=== PATIENT | male | born 1965 | race Caucasian/White ===

== ENCOUNTER → 2023-07-15 06:59 | Outpatient (CLI) | payer BC, SELFPAY ==
[2023-07-15 07:46] LABS: Add Manual Diff / Slide Review NO; Basophils Absolute Auto 0 /uL (0-100); Basophils Percent Auto 0.6 % (0-2); Eosinophils Absolute Auto 100 /uL (0-450); Eosinophils Percent Auto 2.9 % (2-4); Hematocrit 40.2 % (41-53); Hemoglobin 14.2 g/dL (13.5-17.5); Lymphocytes Absolute Auto 1300 /uL (1100-4500); Lymphocytes Percent Auto 25.8 % (25-40); Mean Corpuscular HGB Conc 35.2 % (30-36); Mean Corpuscular Hemoglobin 32.8 PG (26-34); Monocytes Absolute Auto 700 /uL (0-900); Monocytes Percent Auto 14.6 % (3-14); Neutrophils Absolute Auto 2700 /uL (1500-7000); Neutrophils Percent Auto 56.1 % (50-75); Platelet Count 250 X10^3/uL (150-400); Red Blood Cell Count 4.33 X10^6/uL (4.5-5.9); Red Cell Distribution Width 12.2 % (11.6-14.8); White Blood Cell Count 4.9 X10^3/uL (4.5-11.0)
[2023-07-15 08:24] LABS: Alanine Aminotransferase 21 IU/L (<50); Albumin 4.1 g/dL (3.5-5.0); Albumin Globulin Ratio 1.2 (1.0-2.8); Alkaline Phosphatase 51 U/L (38-126); Aspartate Aminotransferase 32 IU/L (17-59); BUN Creatinine Ratio 20.2 (6-22); Bilirubin Total 0.9 mg/dL (0.2-1.3); Blood Urea Nitrogen 19 mg/dL (9-20); Calcium 9.4 mg/dL (8.4-10.2); Carbon Dioxide 28 mmol/L (22-32); Chloride 107 mmol/L (98-107); Cholesterol 231 mg/dL (140-199); Estimated Glomerular Filt Rate > 60 mL/min (>60); Globulin 3.4 g/dL (1.7-4.1); Glucose 98 mg/dL (70-100); HDL Cholesterol 52 mg/dL (40-60); HEMOLYSIS < 15 (0-50); LDL Cholesterol Calculated 156 mg/dL (<100); Potassium 4.6 mmol/L (3.4-5.1); Sodium 139 mmol/L (137-145); Total Protein 7.5 g/dL (6.3-8.2); Triglycerides 116 mg/dL (35-150)
[2023-07-15 08:49] LABS: Prostate Specific Antigen 0.338 ng/mL (0.10-4.00)
== END ==
PROVIDERS: PCP Family Medicine; Referring Provider Family Medicine; Visit Provider Family Medicine
DX: Z00.00 Encounter for general adult medical examination without abnormal findings (principal)
CPT/HCPCS: 36415; 80053; 80061; 84153; 85025

== ENCOUNTER 2023-10-04 12:56 | Day surgery (SDC) | payer BC, SELFPAY ==
--- NOTE | 2023-10-04 | PATH_ITS ---
[facility] Accession Number: [id number] No. of containers..01 Tissue . 01 Material submitted: . rectum - RECTAL POLYP . 01 Diagnosis: RECTAL POLYP: Hyperplastic polyp. [facility] 10/10/2023 1109 Local . 01 Electronically signed: . Lebron Mendoza MD, PhD, Pathologist NPI- [id number] . 01 Gross description: . Received in formalin with two patient identifiers and rectal polyp, is a single zelaya soft tissue fragment, 0.3 cm in greatest dimension. Submitted entirely in A1. ([id number]) /MRV 10/05/2023 1405 Local . 01 Pathologist provided ICD-10: K62.1 . 01 CPT . 116743 Specimen Comment: A courtesy copy of this report has been sent to [phone] Performed at: [address] [facility] [id number] MD Louie Rodriguez MD Phone: [phone]
[2023-10-04 13:19] VITALS: BP 116/74; PULSE 60; RESP 18; TEMP 36.4; O2SAT 95
--- NOTE | 2023-10-04 13:46 | PM.HP.1 ---
History of Present Illness History of Present Illness Date Patient Seen: 10/04/23 Time Patient Seen: 13:46 Chief complaint: [facility] [place] Narrative: 57-year-old man here for 1st time screening colonoscopy. No family history of colon cancer. No abdominal concerns. [facility] Medical History (Updated 07/20/23 @ 19:32 by Laury Minaya) Floaters Sleep difficulties Knee pain Dry skin Depression Concentration deficit Tear of PCL (posterior cruciate ligament) of knee (~2021) Tear of MCL (medial collateral ligament) of knee Chronic back pain Chicken pox (~1986) Tinnitus (~1989) Decreased hearing Skin cancer Family history of Parkinson's disease Epistaxis (~2019) Preventative health care Hyperlipidemia Family history of diabetes mellitus Left knee pain Encounter for well adult exam without abnormal findings Surgical History (Updated 07/20/23 @ 19:32 by Laury Minaya) Squamous cell skin cancer [place] teeth removed Family History (Updated 07/20/23 @ 19:35 by Laury Minaya) Father Diabetes mellitus Parkinson's disease Head injury Mother Depression Grandfather Kidney failure Grandmother Leukemia Social History Smoking Status: Never smoker alcohol intake: current Meds Home Medications and Allergies Home Medications Medication Instructions Recorded Confirmed Type atorvastatin 10 mg tablet 10 mg PO BEDTIME #90 tabs 07/19/23 10/04/23 Rx sodium,potassium,mag sulfates 17.5 See Rx Instructions PO .COMPLEX 09/27/23 Rx gram-3.13 gram-1.6 gram oral soln #354 mL (Suprep Bowel Prep Kit) Allergies Allergy/AdvReac Type Severity Reaction Status Date / Time No Known Drug Allergies Allergy Verified 10/04/23 13:01 Exam Vital Signs (past 8 hours): - 10/04/23 13:19 Temperature 97.5 F L Pulse Rate 60 Respiratory Rate 18 Blood Pressure 116/74 Pulse Oximetry 95 Oxygen Delivery Method Room Air Oxygen Delivery Method Room Air Narrative Exam Narrative: General adult man alert oriented no acute distress Chest nonlabored respiration Extremities warm well perfused Assessment & Plan Assessment & Plan narrative: The patient requires colorectal screening and colonoscopy is recommended. Technical details were discussed. Risks, benefits, alternatives explained. Risks including but not limited to myocardial infarction, aspiration, bleeding, pain, missed lesion, incomplete examination, need for further radiographic studies, intestinal injury, and need for major abdominal surgery were discussed. All questions were answered to their satisfaction, and they are in agreement with this plan.
[2023-10-04 14:14] VITALS: BP 83/54; PULSE 69; RESP 10; TEMP 36.1; O2SAT 93
[2023-10-04 14:19] VITALS: BP 86/57; PULSE 64; RESP 14; O2SAT 95
[2023-10-04 14:24] VITALS: BP 87/59; PULSE 64; RESP 16; O2SAT 97
--- NOTE | 2023-10-04 14:25 | P.OP.COLON_ITS ---
Operative Date/Time/Diagnoses Date of procedure: 10/04/23 Time of procedure: 14:25 Pre-op diagnosis: Colorectal screening Post-op diagnosis: other (Colonic polyps x1) Procedure & Clinicians Study performed: Screening colonoscopy Polypectomy Same procedure as scheduled: Yes Indications: Colorectal screening Surgeon: Sonu Gold Procedure Notes Procedure in detail: The history and physical was performed/updated and the patient is ASA class is 2. The procedure was discussed in detail with the patient. Potential risks complications including infection, bleeding, missed diagnosis, perforation, need for surgery, and were explained. Their questions were answered and informed consent was obtained. Patient was brought to the procedure room and placed standard monitoring equipment. The patient's vital signs were monitored continuously throughout the entire procedure. Prior to starting time-out was performed. The patient was placed in the left lateral recumbent position. Procedural sedation was administered by anesthesia. Examination began with a thorough inspection of the perianal area there was no evidence of fissures, fistulae, external hemorrhoids or cutaneous malignancy. The colonoscopy scope was then placed into the anal canal and was advanced to the cecum, which was identified by the ileocecal valve, the appendiceal orifice and the confluence of the taenia. The scope was then slowly withdrawn examining colon thoroughly in all directions, irrigating it of any residual stool. The scope was retroflexed within the rectum The patient tolerated the procedure well. They will be discharged once criteria are met. The prep was of good/excellent quality. The withdrawl time was 7 minutes. FINDINGS * Rectal polyp 3 mm removed with biopsy forceps * Diverticulosis of descending colon- mild Specimen(s): other (Rectal polyp) Impression: Colonic polyp x1 Post-procedure Recommendations: High fiber diet Plan for aftercare: Follow up is dependent on pathology findings likely 5 years. Disposition: same day surgery
[2023-10-04 14:29] VITALS: BP 99/60; PULSE 59; RESP 16; O2SAT 98
== END 2023-10-04 14:45 | disposition home or self-care (01) ==
PROVIDERS: PCP Family Medicine; Referring Provider Surgery; Visit Provider Surgery
PROC: 0DJD8ZZ Inspection of Lower Intestinal Tract, Via Natural or Artificial Opening Endoscopic (ICD-10-PCS; CPT 45378; principal; 2023-10-04 13:45)
DX: Z12.11 Encounter for screening for malignant neoplasm of colon (principal); K57.30 Diverticulosis of large intestine without perforation or abscess without bleeding; K62.1 Rectal polyp
CPT/HCPCS: 45380; J2704

== ENCOUNTER → 2024-06-22 06:53 | Outpatient (CLI) | payer OTHER, SELFPAY ==
[2024-06-22 08:34] LABS: Alanine Aminotransferase 25 IU/L (<50); Albumin 4.2 g/dL (3.5-5.0); Albumin Globulin Ratio 1.5 (1.0-2.8); Alkaline Phosphatase 51 U/L (38-126); Aspartate Aminotransferase 28 IU/L (17-59); BUN Creatinine Ratio 21.6 (6-22); Bilirubin Total 0.5 mg/dL (0.2-1.3); Blood Urea Nitrogen 21 mg/dL (9-20); Calcium 8.7 mg/dL (8.4-10.2); Carbon Dioxide 26 mmol/L (22-32); Chloride 104 mmol/L (98-107); Cholesterol 173 mg/dL (140-199); Estimated Glomerular Filt Rate > 60 mL/min (>60); Globulin 2.8 g/dL (1.7-4.1); Glucose 94 mg/dL (80-110); HDL Cholesterol 53 mg/dL (40-60); HEMOLYSIS < 15 (0-50); LDL Cholesterol Calculated 99 mg/dL (<100); Potassium 4.5 mmol/L (3.4-5.1); Sodium 139 mmol/L (137-145); Triglycerides 103 mg/dL (35-150)
== END ==
LOC: LAB 06:53
PROVIDERS: PCP Family Medicine; Referring Provider Family Medicine; Visit Provider Family Medicine
DX: E78.5 Hyperlipidemia, unspecified (principal)
CPT/HCPCS: 36415; 80053; 80061

== ENCOUNTER 2024-09-26 08:15 | Outpatient (RCR) | payer OTHER, SELFPAY ==
--- NOTE | 2024-08-08 17:10 | PT.OIE ---
Current Diagnoses Other chronic pain (08/08/24) Pain in left knee (08/08/24) Dorsalgia, unspecified (08/08/24) Past Medical History (Last Reviewed 06/28/24 @ 14:14 by Miguel Lou DO) Adult wellness visit Chicken pox (~1986) Chronic back pain Concentration deficit Decreased hearing Depression Dry skin Encounter for well adult exam without abnormal findings Epistaxis (~2019) Family history of diabetes mellitus Family history of Parkinson's disease Floaters Hyperlipidemia Knee pain Left knee pain Neuropraxia of left upper extremity Preventative health care Skin cancer Sleep difficulties Tear of MCL (medial collateral ligament) of knee Tear of PCL (posterior cruciate ligament) of knee (~2021) Tinnitus (~1989) Past Surgical History (Last Reviewed 06/28/24 @ 14:14 by Miguel Lou DO) Squamous cell skin cancer [place] teeth removed Visit Care Team Role Provider Type Miguel Lou DO Attending Provider Physician Family Provider Primary Care Provider Referring Provider Specialty: [facility] Practice Address: [address] [place] [address] Email: [email or web address] Physical Therapy Initial Evaluation PT-OP-A Visit Information Start: 08/07/24 16:23 Freq: Status: Active Protocol: Document 08/08/24 09:03 SAK (Rec: 08/08/24 09:51 SAK Laptop) Out-Patient Physical Therapy Visit Information Visit Information Visit Type Initial Evaluation Visit Start Time 09:03 Visit Stop Time 09:47 Visit Number 1 Evaluation Information Evaluation Date 08/08/24 PT-OP-B Current Condition Start: 08/07/24 16:23 Freq: Status: Active Protocol: Document 08/08/24 09:03 SAK (Rec: 08/08/24 09:51 SAK Laptop) Current Condition History of Current Condition Onset Date 10+ yrs Current Complaints LBP, right hip pain, tightness History of Current Condition chronic LBP, history having PT due to right sciatica with noted compensatory movements s /p left knee surgery, has been walking fast on treadmill per prior PT recommendation and [place] daily. Pain has shifted from sciatica to lateral right hip pain and states right hip gives way some if lands wrong weighting hip at slightly wrong position. Also does squats, lunges, dips, push ups, rows with TRX. Doing rowing machine caused pain between shoulder blades so discontinued. 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 Described some prior PT exercises, (sounds postural [facility] ex) but not currently doing. No prone exercises. Prior Treatments and Tests PT, no imaging Treatment Goals Patient/Caregiver Goals minimize pain and be able to do usual activities without pain PT-OP-C Subjective Start: 08/07/24 16:23 Freq: Status: Active Protocol: Document 08/08/24 09:03 [facility] (Rec: 08/08/24 11:29 [facility] Laptop) Patient Questionnaires Oswestry Low Back Index Oswestry Score 18 OP-PT Pain Assessment Pain Assessment Grid Paper Pain Assessment Grid Completed Yes Location right hip and buttock, LB Intensity 2 Description Aching,Tightness Frequency Frequent Pain Aggravating Factors Activity,Exercise Other Pain Aggravating Factors walking downhill Pain Alleviating Factors Rest PT-OP-G Mobility & Gait Start: 08/07/24 16:23 Freq: Status: Active Protocol: Document 08/08/24 09:03 [facility] (Rec: 08/08/24 11:29 [facility] Laptop) OP Mobility Evaluation Functional Movements Squats cannot squat fully to the ground OP Gait Assessment Gait Gait Assistance Required: Independent Assistive Devices Assistive Device None Comments Gait Comments increased ER left with decreased hip flexion, dec trunk rotation, increased lateral sway sandra Stair Climbing Evaluation Evaluation Level of Assist On Stairs Independent Technique/Endurance Stair Climbing Direction Ascend and Descend Stair Climbing Technique Step Over Step Comments Stair Climbing Comments decreased gluteal activation PT-OP-H Neuro Start: 08/07/24 16:23 Freq: Status: Active Protocol: Document 08/08/24 09:03 [facility] (Rec: 08/08/24 11:29 [facility] Laptop) Sensation Evaluation Gross Sensation Gross Sensation WNL PT-OP-J Posture/Palpation/Skin Start: 08/07/24 16:23 Freq: Status: Active Protocol: Document 08/08/24 09:03 [facility] (Rec: 08/08/24 09:51 [facility] Laptop) Posture Evaluation Position Standing Head/C-Spine Posture Forward Head T-Spine Posture Increased Kyphosis L-Spine Posture Increased Lordosis Shoulder Posture (L) Rounded,(R) Rounded Scapula Posture (L) Protracted,(R) Protracted Pelvis Posture Anteriorly Tilted Hip Posture (L) Externally Rotated,(R) Externally Rotated Ankle/Foot Posture (L) Forefoot Eversion Foot Arch (L) Low Arch,(R) Low Arch Comments Posture Comments Left ASIS sup to right, leg length equal supine. Palpation Assessment Location piriformis Palpation Location left Palpation Findings Soft Tissue Tightness lumbar paraspinals Palpation Findings Soft Tissue Tightness PT-OP-K Range of Motion Start: 08/07/24 16:23 Freq: Status: Active Protocol: Document 08/08/24 09:03 [facility] (Rec: 08/08/24 11:29 [facility] Laptop) Lumbar Spine Range of Motion Lumbar Spine Active Flexion 70 Extension 25 Rotation Left 10 Rotation Right 10 Lateral Flexion Left 35 Lateral Flexion Right 35 ROM Limitations Soft Tissue Tightness Wrist Goniometric Range of Motion ROM Limitations Wrist Limitations of Range of Motion Soft Tissue Tightness Hip Goniometric Range of Motion Hip Left Flexion w/Knee Flexed 110 Straight Leg Raise 85 Extension 5 Abduction 30 Internal Rotation 25 External Rotation 50 right Flexion w/Knee Flexed 110 Straight Leg Raise 80 Extension 5 Abduction 30 Internal Rotation 25 External Rotation 50 Hip ROM Limitations Hip ROM Limitations Soft Tissue Tightness Comments mild pain right ER Knee Goniometric Range of Motion Knee sandra Knee ROM WFL Yes PT-OP-L Special Tests Start: 08/07/24 16:23 Freq: Status: Active Protocol: Document 08/08/24 09:03 [facility] (Rec: 08/08/24 11:29 [facility] Laptop) Special Tests Lumbar Spine Special Tests Prone Press Up Test Results - Straight Leg Raise Test Results - Hip Special Tests Scour Test Test Results +R Hip IR:ER Ratios Test Results +R PT-OP-M Strength Start: 08/07/24 16:23 Freq: Status: Active Protocol: Document 08/08/24 09:03 [facility] (Rec: 08/08/24 17:10 [facility] Laptop) Trunk Strength Trunk Manual Muscle Testing Flexion 4+ Good+ Extension 4- Good- Shoulder Strength Shoulder Manual Muscle Testing sandra Flexion 4+ Good+ Extension 4 Good Abduction (C5) 4+ Good+ External Rotation 4- Good- Internal Rotation 4+ Good+ Horizontal Abduction 3+ Fair+ Hip Strength Hip Manual Muscle Testing Right Flexion (L2) 4 Good Extension (S1) 4- Good- Abduction 3+ Fair+ External Rotation 3+ Fair+ Internal Rotation 4 Good Left Flexion (L2) 4 Good Extension (S1) 4- Good- Abduction 4- Good- Adduction 4+ Good+ External Rotation 3+ Fair+ Internal Rotation 4+ Good+ Knee Strength Knee Manual Muscle Testing sandra Flexion (S2) 5 Normal Extension (L3) 5 Normal PT-OP-Q Treatments Start: 08/07/24 16:23 Freq: Status: Active Protocol: Document 08/08/24 09:03 SAK (Rec: 08/08/24 11:29 [facility] Laptop) Self-Care/Home Management Treatment Education Patient Education Home Exercise Program Other Education postural education including cues to walk thumbs fwd instead of palms backward, use wall for postural correction, instruction in HEP and issued handout PT-OP-T Assessment and Plan Start: 08/07/24 16:23 Freq: Status: Active Protocol: Document 08/08/24 09:03 [facility] (Rec: 08/08/24 11:29 [facility] Laptop) Physical Therapy Assessment Evaluation Complexity Number of Personal Factors/Comorbidities 1-2 Number of Body Systems Impaired 3 Clinical Presentation at Evaluation Evolving Impairments Impairments Activity Tolerance,Gait,Pain Goals Three Impairment gait dysfunction Short Term Goal (STG) Patient to be instructed in normal gait mechanics including muscle activation sequencing for gait correction STG Duration 09/07/24 Mammography Supervisor Goal (LTG) Patient will be able to ambulate without compensatory movements of lateral sway or excess eversion, ER, and lateral foot movement LTG Duration 10/08/24 Two Impairment Impaired posture, flexibility and strength in hips right greater than left Short Term Goal (STG) Patient to be instructed in individualized, progressive HEP for purposes of postural correction, flexibility and strengthening with emphasis on core stabilization and correct postural alignment STG Duration 09/07/24 Assisted Goal (LTG) Patient to be inidependent and compliant to HEP and demonstrate improvement in flexibility to WNL and strength to 5/5 throughout hips One Impairment right low back, buttock, and hip pain with occasional giving way right hip Mammography Supervisor Goal (LTG) Decrease pain to no greater than 2/10 with all usual activity and patient to report no giving way of hip during hiking or exercise activity. LTG Duration 10/08/24 Assessment Summary Assessment Patient presents to PT with function-limiting pain right buttock, hip, and low back of a chronic nature. Patient reports feeling it came about as result of MCL injury to left knee with resulting loss of muscle left LE and compensation right LE. PT evaluation reveals impairments in posture, muscle flexibility, gait, and strength. Initiated HEP today with patient education regarding neutral posture, and his areas of tightness and weakness. Written handout issued for HEP. Feel patient would benefit from PT to address the above impairments and help him return to prior level of function. Patient appears highly motivated. POC was discussed and patient was in agreement. Physical Therapy Plan Frequency and Duration Frequency of Treatment 2x/Week Duration of treatment (weeks) 8 Plan of Care Start Date 08/08/24 Plan of Care End Date 10/08/24 Therapeutic Interventions Therapeutic Interventions Gait Training,Home Exercise Program,Manual Therapy, Neuromuscular Re-education, Patient/Caregiver Education, Self-Care/Home Management,Soft Tissue Mobilization,Taping, Therapeutic Activities, Therapeutic Exercises Modalities Cold Pack/Ice Massage,Electric Stimulation,Hot Packs, Infrared Therapy,Ultrasound Next Visit Focus/Plan Next Note Type Treatment Note Next Visit Plan Review HEP, work on postural alignment, gait with visual feedback and resistance as tolerated. Progress HEP as indicated.
--- NOTE | 2024-08-08 17:10 | PT.OPPOC ---
Physical, Occupational & Speech Therapy At [facility] Current Diagnoses Other chronic pain (08/08/24) Pain in left knee (08/08/24) Dorsalgia, unspecified (08/08/24) Visit Care Team Role Provider Type Miguel Lou DO Attending Provider Physician Family Provider Primary Care Provider Referring Provider Specialty: [facility] Practice Address: [address] [place] [address], [facility] Email: [email or web address] Plan Of Care PT-OP-B Current Condition Start: 08/07/24 16:23 Freq: Status: Active Protocol: Document 08/08/24 09:03 SAK (Rec: 08/08/24 09:51 SAK Laptop) Current Condition History of Current Condition Onset Date 10+ yrs Current Complaints LBP, right hip pain, tightness History of Current Condition chronic LBP, history having PT due to right sciatica with noted compensatory movements s /p left knee surgery, has been walking fast on treadmill per prior PT recommendation and [place] daily. Pain has shifted from sciatica to lateral right hip pain and states right hip gives way some if lands wrong weighting hip at slightly wrong position. Also does squats, lunges, dips, push ups, rows with TRX. Doing rowing machine caused pain between shoulder blades so discontinued. 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 Described some prior PT exercises, (sounds postural [facility] ex) but not currently doing. No prone exercises. Prior Treatments and Tests PT, no imaging Treatment Goals Patient/Caregiver Goals minimize pain and be able to do usual activities without pain PT-OP-T Assessment and Plan Start: 08/07/24 16:23 Freq: Status: Active Protocol: Document 08/08/24 09:03 SAK (Rec: 08/08/24 11:29 SAK Laptop) Physical Therapy Assessment Evaluation Complexity Number of Personal Factors/Comorbidities 1-2 Number of Body Systems Impaired 3 Clinical Presentation at Evaluation Evolving Impairments Impairments Activity Tolerance,Gait,Pain Goals Three Impairment gait dysfunction Short Term Goal (STG) Patient to be instructed in normal gait mechanics including muscle activation sequencing for gait correction STG Duration 09/07/24 Fdc Goal (LTG) Patient will be able to ambulate without compensatory movements of lateral sway or excess eversion, ER, and lateral foot movement LTG Duration 10/08/24 Two Impairment Impaired posture, flexibility and strength in hips right greater than left Short Term Goal (STG) Patient to be instructed in individualized, progressive HEP for purposes of postural correction, flexibility and strengthening with emphasis on core stabilization and correct postural alignment STG Duration 09/07/24 Fdc Goal (LTG) Patient to be inidependent and compliant to HEP and demonstrate improvement in flexibility to WNL and strength to 5/5 throughout hips One Impairment right low back, buttock, and hip pain with occasional giving way right hip Fdc Goal (LTG) Decrease pain to no greater than 2/10 with all usual activity and patient to report no giving way of hip during hiking or exercise activity. LTG Duration 10/08/24 Assessment Summary Assessment Patient presents to PT with function-limiting pain right buttock, hip, and low back of a chronic nature. Patient reports feeling it came about as result of MCL injury to left knee with resulting loss of muscle left LE and compensation right LE. PT evaluation reveals impairments in posture, muscle flexibility, gait, and strength. Initiated HEP today with patient education regarding neutral posture, and his areas of tightness and weakness. Written handout issued for HEP. Feel patient would benefit from PT to address the above impairments and help him return to prior level of function. Patient appears highly motivated. POC was discussed and patient was in agreement. Physical Therapy Plan Frequency and Duration Frequency of Treatment 2x/Week Duration of treatment (weeks) 8 Plan of Care Start Date 08/08/24 Plan of Care End Date 10/08/24 Therapeutic Interventions Therapeutic Interventions Gait Training,Home Exercise Program,Manual Therapy, Neuromuscular Re-education, Patient/Caregiver Education, Self-Care/Home Management,Soft Tissue Mobilization,Taping, Therapeutic Activities, Therapeutic Exercises Modalities Cold Pack/Ice Massage,Electric Stimulation,Hot Packs, Infrared Therapy,Ultrasound Next Visit Focus/Plan Next Note Type Treatment Note Next Visit Plan Review HEP, work on postural alignment, gait with visual feedback and resistance as tolerated. Progress HEP as indicated. Plan of Care Dates Plan of Care Start Date 08/08/24 Plan of Care End Date 10/08/24 Electronically Signed by: Victoria Sam, PT 08/08/24 [id number] If you are in agreement with this Plan of Care, please return a signed and dated copy. I have reviewed this Plan of Care and certify that the skilled therapy services above are required to meet the patient?s needs. Physician Signature Date Printed Name and Credentials Clinical Instructor Signature Printed Name and Credentials
--- NOTE | 2024-08-14 17:06 | PT.OTN ---
Current Diagnoses Other chronic pain (08/14/24) Pain in left knee (08/14/24) Dorsalgia, unspecified (08/14/24) Physical Therapy Treatment Note PT-OP-A Visit Information Start: 08/07/24 16:23 Freq: Status: Active Protocol: Document 08/14/24 11:32 SAK (Rec: 08/14/24 12:20 SAK Laptop) Out-Patient Physical Therapy Visit Information Visit Information Visit Type Treatment Note Visit Start Time 11:32 Visit Stop Time 12:16 Visit Number 2 PT-OP-B Current Condition Start: 08/07/24 16:23 Freq: Status: Active Protocol: Document 08/14/24 11:32 SAK (Rec: 08/14/24 12:20 SAK Laptop) Current Condition History of Current Condition Onset Date 10+ yrs Current Complaints LBP, right hip pain, tightness History of Current Condition chronic LBP, history having PT due to right sciatica with noted compensatory movements s /p left knee surgery, has been walking fast on treadmill per prior PT recommendation and [place] daily. Pain has shifted from sciatica to lateral right hip pain and states right hip gives way some if lands wrong weighting hip at slightly wrong position. Also does squats, lunges, dips, push ups, rows with TRX. Doing rowing machine caused pain between shoulder blades so discontinued. 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 Described some prior PT exercises, (sounds postural [facility] ex) but not currently doing. No prone exercises. Prior Treatments and Tests PT, no imaging Treatment Goals Patient/Caregiver Goals minimize pain and be able to do usual activities without pain PT-OP-C Subjective Start: 08/07/24 16:23 Freq: Status: Active Protocol: Document 08/14/24 11:32 SAK (Rec: 08/14/24 12:20 SAK Laptop) OP-PT Subjective Patient Comments Patient Comments No new c/o, right hip still hurting. PT-OP-G Mobility & Gait Start: 08/07/24 16:23 Freq: Status: Active Protocol: Document 08/08/24 09:03 SAK (Rec: 08/08/24 11:29 SAK Laptop) OP Mobility Evaluation Functional Movements Squats cannot squat fully to the ground OP Gait Assessment Gait Gait Assistance Required: Independent Assistive Devices Assistive Device None Comments Gait Comments increased ER left with decreased hip flexion, dec trunk rotation, increased lateral sway sandra Stair Climbing Evaluation Evaluation Level of Assist On Stairs Independent Technique/Endurance Stair Climbing Direction Ascend and Descend Stair Climbing Technique Step Over Step Comments Stair Climbing Comments decreased gluteal activation PT-OP-H Neuro Start: 08/07/24 16:23 Freq: Status: Active Protocol: Document 08/08/24 09:03 [facility] (Rec: 08/08/24 11:29 SAK Laptop) Sensation Evaluation Gross Sensation Gross Sensation WNL PT-OP-J Posture/Palpation/Skin Start: 08/07/24 16:23 Freq: Status: Active Protocol: Document 08/08/24 09:03 SAK (Rec: 08/08/24 09:51 SAK Laptop) Posture Evaluation Position Standing Head/C-Spine Posture Forward Head T-Spine Posture Increased Kyphosis L-Spine Posture Increased Lordosis Shoulder Posture (L) Rounded,(R) Rounded Scapula Posture (L) Protracted,(R) Protracted Pelvis Posture Anteriorly Tilted Hip Posture (L) Externally Rotated,(R) Externally Rotated Ankle/Foot Posture (L) Forefoot Eversion Foot Arch (L) Low Arch,(R) Low Arch Comments Posture Comments Left ASIS sup to right, leg length equal supine. Palpation Assessment Location piriformis Palpation Location left Palpation Findings Soft Tissue Tightness lumbar paraspinals Palpation Findings Soft Tissue Tightness PT-OP-K Range of Motion Start: 08/07/24 16:23 Freq: Status: Active Protocol: Document 08/08/24 09:03 [facility] (Rec: 08/08/24 11:29 SAK Laptop) Lumbar Spine Range of Motion Lumbar Spine Active Flexion 70 Extension 25 Rotation Left 10 Rotation Right 10 Lateral Flexion Left 35 Lateral Flexion Right 35 ROM Limitations Soft Tissue Tightness Wrist Goniometric Range of Motion ROM Limitations Wrist Limitations of Range of Motion Soft Tissue Tightness Hip Goniometric Range of Motion Hip Left Flexion w/Knee Flexed 110 Straight Leg Raise 85 Extension 5 Abduction 30 Internal Rotation 25 External Rotation 50 right Flexion w/Knee Flexed 110 Straight Leg Raise 80 Extension 5 Abduction 30 Internal Rotation 25 External Rotation 50 Hip ROM Limitations Hip ROM Limitations Soft Tissue Tightness Comments mild pain right ER Knee Goniometric Range of Motion Knee sandra Knee ROM WFL Yes PT-OP-L Special Tests Start: 08/07/24 16:23 Freq: Status: Active Protocol: Document 08/08/24 09:03 [facility] (Rec: 08/08/24 11:29 [facility] Laptop) Special Tests Lumbar Spine Special Tests Prone Press Up Test Results - Straight Leg Raise Test Results - Hip Special Tests Scour Test Test Results +R Hip IR:ER Ratios Test Results +R PT-OP-M Strength Start: 08/07/24 16:23 Freq: Status: Active Protocol: Document 08/08/24 09:03 [facility] (Rec: 08/08/24 17:10 [facility] Laptop) Trunk Strength Trunk Manual Muscle Testing Flexion 4+ Good+ Extension 4- Good- Shoulder Strength Shoulder Manual Muscle Testing sandra Flexion 4+ Good+ Extension 4 Good Abduction (C5) 4+ Good+ External Rotation 4- Good- Internal Rotation 4+ Good+ Horizontal Abduction 3+ Fair+ Hip Strength Hip Manual Muscle Testing Right Flexion (L2) 4 Good Extension (S1) 4- Good- Abduction 3+ Fair+ External Rotation 3+ Fair+ Internal Rotation 4 Good Left Flexion (L2) 4 Good Extension (S1) 4- Good- Abduction 4- Good- Adduction 4+ Good+ External Rotation 3+ Fair+ Internal Rotation 4+ Good+ Knee Strength Knee Manual Muscle Testing sandra Flexion (S2) 5 Normal Extension (L3) 5 Normal PT-OP-Q Treatments Start: 08/07/24 16:23 Freq: Status: Active Protocol: Document 08/14/24 11:32 [facility] (Rec: 08/14/24 12:20 [facility] Laptop) Cardio Equipment Treadmill Duration (Minutes) 7 Speed 2.8,1.0, 1.0 Incline 0-1 Other fwd, side, back: video taken for reference Gym Equipment Sport Cord red cord Exercise Details fwd fwd june, side Cord/Resistance red Reps/Duration 5x ea Comments cues for neutral LE's, use of mirror for forward visual feedback Therapeutic Exercises Sidelying Exercises clam Equipment Used wall Reps/Minutes 10x hip ab Equipment Used wall Reps/Minutes 10x Standing Exercises wall posture Reps/Minutes 2 min resisted sidestep Equipment Used L3 TB Reps/Minutes 10 ft sandra x 2 Comments cues for neutral LE's Gait Training Gait Activity forward Description mirror for visual feedback Treatment Focus decrease compensations Self-Care/Home Management Treatment Education Other Education updated written HEP Reviewed video of patient gait with discussion of correction of compensatory movements. PT-OP-T Assessment and Plan Start: 08/07/24 16:23 Freq: Status: Active Protocol: Document 08/14/24 11:32 SAK (Rec: 08/14/24 12:20 SAK Laptop) Physical Therapy Assessment Goals Three Impairment gait dysfunction Short Term Goal (STG) Patient to be instructed in normal gait mechanics including muscle activation sequencing for gait correction STG Duration 09/07/24 Freight Loader Goal (LTG) Patient will be able to ambulate without compensatory movements of lateral sway or excess eversion, ER, and lateral foot movement LTG Duration 10/08/24 Two Impairment Impaired posture, flexibility and strength in hips right greater than left Short Term Goal (STG) Patient to be instructed in individualized, progressive HEP for purposes of postural correction, flexibility and strengthening with emphasis on core stabilization and correct postural alignment STG Duration 09/07/24 Snf Goal (LTG) Patient to be inidependent and compliant to HEP and demonstrate improvement in flexibility to WNL and strength to 5/5 throughout hips LTG Duration 10/08/24 One Impairment right low back, buttock, and hip pain with occasional giving way right hip Snf Goal (LTG) Decrease pain to no greater than 2/10 with all usual activity and patient to report no giving way of hip during hiking or exercise activity. LTG Duration 10/08/24 Assessment Summary Assessment Patient verbalized suprise by difficulty of doing sidebending HEP ex against the wall left greater than right. Video of gait on treadmill reveals significant compensatory movements, worked on Sport cord with mirror for work at correction. More difficulty sideways walking on treadmill vs left. Physical Therapy Plan Frequency and Duration Frequency of Treatment 2x/Week Duration of treatment (weeks) 8 Plan of Care Start Date 08/08/24 Plan of Care End Date 10/08/24 Therapeutic Interventions Therapeutic Interventions Gait Training,Home Exercise Program,Manual Therapy, Neuromuscular Re-education, Patient/Caregiver Education, Self-Care/Home Management,Soft Tissue Mobilization,Taping, Therapeutic Activities, Therapeutic Exercises Modalities Cold Pack/Ice Massage,Electric Stimulation,Hot Packs, Infrared Therapy,Ultrasound Next Visit Focus/Plan Next Note Type Treatment Note Next Visit Plan Consider joint mobilizations hips to inc hip ER. Progress sport cord ex. Trial squats, shuttle leg press single leg, consider single leg lift.
--- NOTE | 2024-08-20 15:16 | PT.OTN ---
Current Diagnoses Other chronic pain (08/20/24) Pain in left knee (08/20/24) Dorsalgia, unspecified (08/20/24) Physical Therapy Treatment Note PT-OP-A Visit Information Start: 08/07/24 16:23 Freq: Status: Active Protocol: Document 08/20/24 14:31 SP (Rec: 08/20/24 15:44 SP [id number]) Out-Patient Physical Therapy Visit Information Visit Information Visit Type Treatment Note Visit Note ROHITH Elliott observed tx with permission of pt. 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 Pain has shifted from sciatica to lateral right hip pain and states right hip gives way some if lands wrong weighting hip at slightly wrong position. Also does squats, lunges, dips, push ups, rows with TRX. Doing rowing machine caused pain between shoulder blades so discontinued. 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 Described some prior PT exercises, (sounds postural [facility] ex) but not currently doing. No prone exercises. Prior Treatments and Tests PT, no imaging Treatment Goals Patient/Caregiver Goals minimize pain and be able to do usual activities without pain PT-OP-C Subjective Start: 08/07/24 16:23 Freq: Status: Active Protocol: Document 08/20/24 14:31 SP (Rec: 08/20/24 15:44 SP [id number]) OP-PT Subjective Patient Comments Patient Comments Pt reports doing stretching self program and incorporating HEp and carryover stepping on trails learned on TM. PT-OP-G Mobility & Gait Start: 08/07/24 16:23 Freq: Status: Active Protocol: Document 08/08/24 09:03 SAK (Rec: 08/08/24 11:29 SAK Laptop) OP Mobility Evaluation Functional Movements Squats cannot squat fully to the ground OP Gait Assessment Gait Gait Assistance Required: Independent Assistive Devices Assistive Device None Comments Gait Comments increased ER left with decreased hip flexion, dec trunk rotation, increased lateral sway taqueria Stair Climbing Evaluation Evaluation Level of Assist On Stairs Independent Technique/Endurance Stair Climbing Direction Ascend and Descend Stair Climbing Technique Step Over Step Comments Stair Climbing Comments decreased gluteal activation PT-OP-H Neuro Start: 08/07/24 16:23 Freq: Status: Active Protocol: Document 08/08/24 09:03 [facility] (Rec: 08/08/24 11:29 [facility] Laptop) Sensation Evaluation Gross Sensation Gross Sensation WNL PT-OP-J Posture/Palpation/Skin Start: 08/07/24 16:23 Freq: Status: Active Protocol: Document 08/08/24 09:03 [facility] (Rec: 08/08/24 09:51 [facility] Laptop) Posture Evaluation Position Standing Head/C-Spine Posture Forward Head T-Spine Posture Increased Kyphosis L-Spine Posture Increased Lordosis Shoulder Posture (L) Rounded,(R) Rounded Scapula Posture (L) Protracted,(R) Protracted Pelvis Posture Anteriorly Tilted Hip Posture (L) Externally Rotated,(R) Externally Rotated Ankle/Foot Posture (L) Forefoot Eversion Foot Arch (L) Low Arch,(R) Low Arch Comments Posture Comments Left ASIS sup to right, leg length equal supine. Palpation Assessment Location piriformis Palpation Location left Palpation Findings Soft Tissue Tightness lumbar paraspinals Palpation Findings Soft Tissue Tightness PT-OP-K Range of Motion Start: 08/07/24 16:23 Freq: Status: Active Protocol: Document 08/08/24 09:03 [facility] (Rec: 08/08/24 11:29 [facility] Laptop) Lumbar Spine Range of Motion Lumbar Spine Active Flexion 70 Extension 25 Rotation Left 10 Rotation Right 10 Lateral Flexion Left 35 Lateral Flexion Right 35 ROM Limitations Soft Tissue Tightness Wrist Goniometric Range of Motion ROM Limitations Wrist Limitations of Range of Motion Soft Tissue Tightness Hip Goniometric Range of Motion Hip Left Flexion w/Knee Flexed 110 Straight Leg Raise 85 Extension 5 Abduction 30 Internal Rotation 25 External Rotation 50 right Flexion w/Knee Flexed 110 Straight Leg Raise 80 Extension 5 Abduction 30 Internal Rotation 25 External Rotation 50 Hip ROM Limitations Hip ROM Limitations Soft Tissue Tightness Comments mild pain right ER Knee Goniometric Range of Motion Knee taqueria Knee ROM WFL Yes PT-OP-L Special Tests Start: 08/07/24 16:23 Freq: Status: Active Protocol: Document 08/08/24 09:03 SAK (Rec: 08/08/24 11:29 SAK Laptop) Special Tests Lumbar Spine Special Tests Prone Press Up Test Results - Straight Leg Raise Test Results - Hip Special Tests Scour Test Test Results +R Hip IR:ER Ratios Test Results +R PT-OP-M Strength Start: 08/07/24 16:23 Freq: Status: Active Protocol: Document 08/08/24 09:03 SAK (Rec: 08/08/24 17:10 SAK Laptop) Trunk Strength Trunk Manual Muscle Testing Flexion 4+ Good+ Extension 4- Good- Shoulder Strength Shoulder Manual Muscle Testing taqueria Flexion 4+ Good+ Extension 4 Good Abduction (C5) 4+ Good+ External Rotation 4- Good- Internal Rotation 4+ Good+ Horizontal Abduction 3+ Fair+ Hip Strength Hip Manual Muscle Testing Right Flexion (L2) 4 Good Extension (S1) 4- Good- Abduction 3+ Fair+ External Rotation 3+ Fair+ Internal Rotation 4 Good Left Flexion (L2) 4 Good Extension (S1) 4- Good- Abduction 4- Good- Adduction 4+ Good+ External Rotation 3+ Fair+ Internal Rotation 4+ Good+ Knee Strength Knee Manual Muscle Testing taqueria Flexion (S2) 5 Normal Extension (L3) 5 Normal PT-OP-Q Treatments Start: 08/07/24 16:23 Freq: Status: Active Protocol: Document 08/20/24 14:31 SP (Rec: 08/20/24 15:44 SP [id number]) Therapeutic Exercises Supine Exercises Hip IR & ER stretch Supine Exercise Name Hip rotation stretch: reviewed supine and seated Equipment Used added towel support to thigh hip IR improved decreased neck strain Reps/Minutes 60 sec Comments supine and seated LTR Supine Exercise Name reviewed self HEP Side bilateral Equipment Used top leg over foam roller Reps/Minutes 30 SH Comments hip and back rotation stretch Sidelying Exercises clam Resistance TB #3 at thighs Equipment Used wall Reps/Minutes 10x 5 Sh Comments cued stacked alignment with head cack, lean into top arm on table hip ab Resistance AROM> TB #3 at thighs Equipment Used wall Reps/Minutes 10x Comments cued stacked alignment with head cack, lean into top arm on table Standing Exercises squat Standing Exercise Name added TB to squats hand written on current HO Resistance Tb #3 around thighs Equipment Used front mirror for self knee alignment feedback Reps/Minutes 10 reps Comments cued knee out and with an resisted sidestep Standing Exercise Name lateral, fwd, bwd reviewed Equipment Used L3 TB Reps/Minutes 20 ft taqueria x 2 laps each Comments cues for neutral LE's Other Exercises self STMs Other Exercise Name glut/hip ERs self massage over lacrosse ball Side right Equipment Used wall>floor>sit on floor 3 pt contact support for pressure tolerance Reps/Minutes approx 30-60 sec Comments cued/ ed sustained pressure vs rolling Dynamic flexibility during day out of chair Other Exercise Name deep knee squat, SL squat approx chair height leg fwd & retro Side bilateral Equipment Used reviewed self HEP Reps/Minutes 12 L, 8 R reps taqueria (demoed 1 in [place]) Comments cued increase knee NAOMI SL squat, decreased valgus cave for hip abd strength Dynamic warm up Other Exercise Name Pre trail/walking: bird dog, LTR, reverse step down, Trunk rotation Resistance reviewed self HEP Reps/Minutes 8 reps each Taqueria (demoed 1 in [place]) Comments cued slower pacing but good form Self-Care/Home Management Treatment Education Patient Education Body Mechanics,Posture Other Education Eduction throughout tx mindful head and upper back corrections alignment during ther ex and knee alignment for hip abd strengthening for stability and glut drive for balance R hip joint to continue trail hiking and eventually return to jog. PT-OP-T Assessment and Plan Start: 08/07/24 16:23 Freq: Status: Active Protocol: Document 08/20/24 14:31 SP (Rec: 08/20/24 15:44 SP [id number]) Physical Therapy Assessment Goals Three Impairment gait dysfunction Short Term Goal (STG) Patient to be instructed in normal gait mechanics including muscle activation sequencing for gait correction STG Duration 09/07/24 Cell Liner Goal (LTG) Patient will be able to ambulate without compensatory movements of lateral sway or excess eversion, ER, and lateral foot movement LTG Duration 10/08/24 Two Impairment Impaired posture, flexibility and strength in hips right greater than left Short Term Goal (STG) Patient to be instructed in individualized, progressive HEP for purposes of postural correction, flexibility and strengthening with emphasis on core stabilization and correct postural alignment STG Duration 09/07/24 Senior Care Goal (LTG) Patient to be inidependent and compliant to HEP and demonstrate improvement in flexibility to WNL and strength to 5/5 throughout hips LTG Duration 10/08/24 One Impairment right low back, buttock, and hip pain with occasional giving way right hip Senior Care Goal (LTG) Decrease pain to no greater than 2/10 with all usual activity and patient to report no giving way of hip during hiking or exercise activity. LTG Duration 10/08/24 Assessment Summary Assessment Pt improved postural corrections and knee alignment with cuing education for stability of jt and decreased pain. He tolerated increased addition of resistant band to clamshell, hip abd, resisted stepping and squats for progression strength and how can self massage R hip for flexibility support. Pt reports R hip feels good end tx. Physical Therapy Plan Frequency and Duration Frequency of Treatment 2x/Week Duration of treatment (weeks) 8 Plan of Care Start Date 08/08/24 Plan of Care End Date 10/08/24 Therapeutic Interventions Therapeutic Interventions Gait Training,Home Exercise Program,Manual Therapy, Neuromuscular Re-education, Patient/Caregiver Education, Self-Care/Home Management,Soft Tissue Mobilization,Taping, Therapeutic Activities, Therapeutic Exercises Modalities Cold Pack/Ice Massage,Electric Stimulation,Hot Packs, Infrared Therapy,Ultrasound Next Visit Focus/Plan Next Note Type Treatment Note Next Visit Plan Next: ask response to added resistance band to HEP, self STMs and self corrections alignment posture and knee. Consider joint mobilizations hips to inc hip ER. Progress sport cord ex. Trial shuttle leg press single leg, consider single leg lift.
--- NOTE | 2024-09-10 10:43 | PT.OTN ---
Current Diagnoses Other chronic pain (09/10/24) Pain in left knee (09/10/24) Dorsalgia, unspecified (09/10/24) Physical Therapy Treatment Note PT-OP-A Visit Information Start: 08/07/24 16:23 Freq: Status: Active Protocol: Document 09/10/24 09:40 SAK (Rec: 09/10/24 10:42 SAK Laptop) Out-Patient Physical Therapy Visit Information Visit Information Visit Type Treatment Note Visit Start Time 09:45 Visit Stop Time 10:36 Visit Number 4 Number of RELIEF COOK Visits 0 PT-OP-B Current Condition Start: 08/07/24 16:23 Freq: Status: Active Protocol: Document 09/10/24 09:40 SAK (Rec: 09/10/24 10:42 SAK Laptop) Current Condition History of Current Condition Onset Date 10+ yrs Current Complaints LBP, right hip pain, tightness History of Current Condition chronic LBP, history having PT due to right sciatica with noted compensatory movements s /p left knee surgery, has been walking fast on treadmill per prior PT recommendation and [place] daily. Pain has shifted from sciatica to lateral right hip pain and states right hip gives way some if lands wrong weighting hip at slightly wrong position. Also does squats, lunges, dips, push ups, rows with TRX. Doing rowing machine caused pain between shoulder blades so discontinued. 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 Described some prior PT exercises, (sounds postural [facility] ex) but not currently doing. No prone exercises. Prior Treatments and Tests PT, no imaging Treatment Goals Patient/Caregiver Goals minimize pain and be able to do usual activities without pain PT-OP-C Subjective Start: 08/07/24 16:23 Freq: Status: Active Protocol: Document 09/10/24 09:40 SAK (Rec: 09/10/24 10:42 SAK Laptop) OP-PT Subjective Patient Comments Patient Comments No new c/o, compliant to HEP. Pain is dull ache right hip, pain has shifted forward since starting PT. Less giving way sensation PT-OP-G Mobility & Gait Start: 08/07/24 16:23 Freq: Status: Active Protocol: Document 08/08/24 09:03 SAK (Rec: 08/08/24 11:29 SAK Laptop) OP Mobility Evaluation Functional Movements Squats cannot squat fully to the ground OP Gait Assessment Gait Gait Assistance Required: Independent Assistive Devices Assistive Device None Comments Gait Comments increased ER left with decreased hip flexion, dec trunk rotation, increased lateral sway sandra Stair Climbing Evaluation Evaluation Level of Assist On Stairs Independent Technique/Endurance Stair Climbing Direction Ascend and Descend Stair Climbing Technique Step Over Step Comments Stair Climbing Comments decreased gluteal activation PT-OP-H Neuro Start: 08/07/24 16:23 Freq: Status: Active Protocol: Document 08/08/24 09:03 [facility] (Rec: 08/08/24 11:29 [facility] Laptop) Sensation Evaluation Gross Sensation Gross Sensation WNL PT-OP-J Posture/Palpation/Skin Start: 08/07/24 16:23 Freq: Status: Active Protocol: Document 08/08/24 09:03 [facility] (Rec: 08/08/24 09:51 [facility] Laptop) Posture Evaluation Position Standing Head/C-Spine Posture Forward Head T-Spine Posture Increased Kyphosis L-Spine Posture Increased Lordosis Shoulder Posture (L) Rounded,(R) Rounded Scapula Posture (L) Protracted,(R) Protracted Pelvis Posture Anteriorly Tilted Hip Posture (L) Externally Rotated,(R) Externally Rotated Ankle/Foot Posture (L) Forefoot Eversion Foot Arch (L) Low Arch,(R) Low Arch Comments Posture Comments Left ASIS sup to right, leg length equal supine. Palpation Assessment Location piriformis Palpation Location left Palpation Findings Soft Tissue Tightness lumbar paraspinals Palpation Findings Soft Tissue Tightness PT-OP-K Range of Motion Start: 08/07/24 16:23 Freq: Status: Active Protocol: Document 08/08/24 09:03 [facility] (Rec: 08/08/24 11:29 [facility] Laptop) Lumbar Spine Range of Motion Lumbar Spine Active Flexion 70 Extension 25 Rotation Left 10 Rotation Right 10 Lateral Flexion Left 35 Lateral Flexion Right 35 ROM Limitations Soft Tissue Tightness Wrist Goniometric Range of Motion ROM Limitations Wrist Limitations of Range of Motion Soft Tissue Tightness Hip Goniometric Range of Motion Hip Left Flexion w/Knee Flexed 110 Straight Leg Raise 85 Extension 5 Abduction 30 Internal Rotation 25 External Rotation 50 right Flexion w/Knee Flexed 110 Straight Leg Raise 80 Extension 5 Abduction 30 Internal Rotation 25 External Rotation 50 Hip ROM Limitations Hip ROM Limitations Soft Tissue Tightness Comments mild pain right ER Knee Goniometric Range of Motion Knee sandra Knee ROM WFL Yes PT-OP-L Special Tests Start: 08/07/24 16:23 Freq: Status: Active Protocol: Document 08/08/24 09:03 [facility] (Rec: 08/08/24 11:29 [facility] Laptop) Special Tests Lumbar Spine Special Tests Prone Press Up Test Results - Straight Leg Raise Test Results - Hip Special Tests Scour Test Test Results +R Hip IR:ER Ratios Test Results +R PT-OP-M Strength Start: 08/07/24 16:23 Freq: Status: Active Protocol: Document 08/08/24 09:03 [facility] (Rec: 08/08/24 17:10 [facility] Laptop) Trunk Strength Trunk Manual Muscle Testing Flexion 4+ Good+ Extension 4- Good- Shoulder Strength Shoulder Manual Muscle Testing sandra Flexion 4+ Good+ Extension 4 Good Abduction (C5) 4+ Good+ External Rotation 4- Good- Internal Rotation 4+ Good+ Horizontal Abduction 3+ Fair+ Hip Strength Hip Manual Muscle Testing Right Flexion (L2) 4 Good Extension (S1) 4- Good- Abduction 3+ Fair+ External Rotation 3+ Fair+ Internal Rotation 4 Good Left Flexion (L2) 4 Good Extension (S1) 4- Good- Abduction 4- Good- Adduction 4+ Good+ External Rotation 3+ Fair+ Internal Rotation 4+ Good+ Knee Strength Knee Manual Muscle Testing sandra Flexion (S2) 5 Normal Extension (L3) 5 Normal PT-OP-Q Treatments Start: 08/07/24 16:23 Freq: Status: Active Protocol: Document 09/10/24 09:40 [facility] (Rec: 09/10/24 10:42 [facility] Laptop) Gym Equipment Shuttle Recovery Bilateral Squats Resistance 100 Shuttle Recovery Platform Unstable Unilateral Squats Resistance 50,62 Shuttle Recovery Platform Stable Reps/Time 10 Shuttle Balance chains red Details side to side bal, wt shift, SLS Reps/Duration 6 min Therapeutic Exercises Supine Exercises foam roller Supine Exercise Name chest stretch Reps/Minutes 3 min Standing Exercises single leg lift Reps/Minutes 10x2 Comments cues for neutral core and LE alignment step-ups Resistance 0#, 20# Equipment Used 8 Box, mirror Comments cues for alignment, unable to correct squat Standing Exercise Name added TB to squats hand written on current HO Resistance Tb #4 around thighs Equipment Used front mirror for self knee alignment feedback Reps/Minutes 10 reps Comments cued knee out and with an wall posture Reps/Minutes 2 min Comments verbal and tactile cues resisted sidestep Standing Exercise Name lateral, fwd, bwd reviewed Equipment Used L4 TB Reps/Minutes 20 ft sandra x 2 laps each Comments cues for neutral LE's Other Exercises self STMs Other Exercise Name doing on own. PT-OP-T Assessment and Plan Start: 08/07/24 16:23 Freq: Status: Active Protocol: Document 09/10/24 09:40 SAK (Rec: 09/10/24 10:42 SAK Laptop) Physical Therapy Assessment Goals Three Impairment gait dysfunction Short Term Goal (STG) Patient to be instructed in normal gait mechanics including muscle activation sequencing for gait correction 09/10/24: goal met STG Duration 09/07/24 Retail Shift Manager Goal (LTG) Patient will be able to ambulate without compensatory movements of lateral sway or excess eversion, ER, and lateral foot movement LTG Duration 10/08/24 Two Impairment Impaired posture, flexibility and strength in hips right greater than left Short Term Goal (STG) Patient to be instructed in individualized, progressive HEP for purposes of postural correction, flexibility and strengthening with emphasis on core stabilization and correct postural alignment 09/10/24:goal met, ongoing progresion STG Duration mostly met Shelter Goal (LTG) Patient to be inidependent and compliant to HEP and demonstrate improvement in flexibility to WNL and strength to 5/5 throughout hips LTG Duration 10/08/24 One Impairment right low back, buttock, and hip pain with occasional giving way right hip Shelter Goal (LTG) Decrease pain to no greater than 2/10 with all usual activity and patient to report no giving way of hip during hiking or exercise activity. LTG Duration 10/08/24 Assessment Summary Assessment Patient demonstrates poor posture waiting at sign in desk, started wall posture. Reviewed HEP with cues for slow, controlled movement. Poor form on step-up ex and leg lowering her does at home, unable to correct with cues including use of mirror, advised to discontinue until further practice with PT. Overuses right vs left leg single leg shuttle leg press. Physical Therapy Plan Frequency and Duration Frequency of Treatment 2x/Week Duration of treatment (weeks) 8 Plan of Care Start Date 08/08/24 Plan of Care End Date 10/08/24 Therapeutic Interventions Therapeutic Interventions Gait Training,Home Exercise Program,Manual Therapy, Neuromuscular Re-education, Patient/Caregiver Education, Self-Care/Home Management,Soft Tissue Mobilization,Taping, Therapeutic Activities, Therapeutic Exercises Modalities Cold Pack/Ice Massage,Electric Stimulation,Hot Packs, Infrared Therapy,Ultrasound Next Visit Focus/Plan Next Note Type Treatment Note Next Visit Plan Review single leg lift, single leg shuttle leg press. Emphasis on slow controlled movements and body alignment.
--- NOTE | 2024-09-18 12:31 | PT.OTN ---
Current Diagnoses Other chronic pain (09/18/24) Pain in left knee (09/18/24) Dorsalgia, unspecified (09/18/24) Physical Therapy Treatment Note PT-OP-A Visit Information Start: 08/07/24 16:23 Freq: Status: Active Protocol: Document 09/18/24 10:47 AB (Rec: 09/18/24 12:31 AB Laptop) Out-Patient Physical Therapy Visit Information Visit Information Visit Type Treatment Note Visit Start Time 10:48 Visit Stop Time 11:30 Visit Number 5 Number of BILL PEDDLER Visits 1 PT-OP-B Current Condition Start: 08/07/24 16:23 Freq: Status: Active Protocol: Document 09/10/24 09:40 SAK (Rec: 09/10/24 10:42 SAK Laptop) Current Condition History of Current Condition Onset Date 10+ yrs Current Complaints LBP, right hip pain, tightness History of Current Condition chronic LBP, history having PT due to right sciatica with noted compensatory movements s /p left knee surgery, has been walking fast on treadmill per prior PT recommendation and [place] daily. Pain has shifted from sciatica to lateral right hip pain and states right hip gives way some if lands wrong weighting hip at slightly wrong position. Also does squats, lunges, dips, push ups, rows with TRX. Doing rowing machine caused pain between shoulder blades so discontinued. 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 Described some prior PT exercises, (sounds postural [facility] ex) but not currently doing. No prone exercises. Prior Treatments and Tests PT, no imaging Treatment Goals Patient/Caregiver Goals minimize pain and be able to do usual activities without pain PT-OP-C Subjective Start: 08/07/24 16:23 Freq: Status: Active Protocol: Document 09/18/24 10:47 AB (Rec: 09/18/24 12:31 AB Laptop) OP-PT Subjective Patient Comments Patient Comments Brock reports pain is going from sharp pain to dull ache. Pt reports buckling is less, denies falls. Patient rates pain 1/10 sciatic. PT-OP-G Mobility & Gait Start: 08/07/24 16:23 Freq: Status: Active Protocol: Document 08/08/24 09:03 SAK (Rec: 08/08/24 11:29 SAK Laptop) OP Mobility Evaluation Functional Movements Squats cannot squat fully to the ground OP Gait Assessment Gait Gait Assistance Required: Independent Assistive Devices Assistive Device None Comments Gait Comments increased ER left with decreased hip flexion, dec trunk rotation, increased lateral sway sandra Stair Climbing Evaluation Evaluation Level of Assist On Stairs Independent Technique/Endurance Stair Climbing Direction Ascend and Descend Stair Climbing Technique Step Over Step Comments Stair Climbing Comments decreased gluteal activation PT-OP-H Neuro Start: 08/07/24 16:23 Freq: Status: Active Protocol: Document 08/08/24 09:03 [facility] (Rec: 08/08/24 11:29 [facility] Laptop) Sensation Evaluation Gross Sensation Gross Sensation WNL PT-OP-J Posture/Palpation/Skin Start: 08/07/24 16:23 Freq: Status: Active Protocol: Document 08/08/24 09:03 [facility] (Rec: 08/08/24 09:51 [facility] Laptop) Posture Evaluation Position Standing Head/C-Spine Posture Forward Head T-Spine Posture Increased Kyphosis L-Spine Posture Increased Lordosis Shoulder Posture (L) Rounded,(R) Rounded Scapula Posture (L) Protracted,(R) Protracted Pelvis Posture Anteriorly Tilted Hip Posture (L) Externally Rotated,(R) Externally Rotated Ankle/Foot Posture (L) Forefoot Eversion Foot Arch (L) Low Arch,(R) Low Arch Comments Posture Comments Left ASIS sup to right, leg length equal supine. Palpation Assessment Location piriformis Palpation Location left Palpation Findings Soft Tissue Tightness lumbar paraspinals Palpation Findings Soft Tissue Tightness PT-OP-K Range of Motion Start: 08/07/24 16:23 Freq: Status: Active Protocol: Document 08/08/24 09:03 [facility] (Rec: 08/08/24 11:29 [facility] Laptop) Lumbar Spine Range of Motion Lumbar Spine Active Flexion 70 Extension 25 Rotation Left 10 Rotation Right 10 Lateral Flexion Left 35 Lateral Flexion Right 35 ROM Limitations Soft Tissue Tightness Wrist Goniometric Range of Motion ROM Limitations Wrist Limitations of Range of Motion Soft Tissue Tightness Hip Goniometric Range of Motion Hip Left Flexion w/Knee Flexed 110 Straight Leg Raise 85 Extension 5 Abduction 30 Internal Rotation 25 External Rotation 50 right Flexion w/Knee Flexed 110 Straight Leg Raise 80 Extension 5 Abduction 30 Internal Rotation 25 External Rotation 50 Hip ROM Limitations Hip ROM Limitations Soft Tissue Tightness Comments mild pain right ER Knee Goniometric Range of Motion Knee sandra Knee ROM WFL Yes PT-OP-L Special Tests Start: 08/07/24 16:23 Freq: Status: Active Protocol: Document 08/08/24 09:03 [facility] (Rec: 08/08/24 11:29 SAK Laptop) Special Tests Lumbar Spine Special Tests Prone Press Up Test Results - Straight Leg Raise Test Results - Hip Special Tests Scour Test Test Results +R Hip IR:ER Ratios Test Results +R PT-OP-M Strength Start: 08/07/24 16:23 Freq: Status: Active Protocol: Document 08/08/24 09:03 [facility] (Rec: 08/08/24 17:10 SAK Laptop) Trunk Strength Trunk Manual Muscle Testing Flexion 4+ Good+ Extension 4- Good- Shoulder Strength Shoulder Manual Muscle Testing sandra Flexion 4+ Good+ Extension 4 Good Abduction (C5) 4+ Good+ External Rotation 4- Good- Internal Rotation 4+ Good+ Horizontal Abduction 3+ Fair+ Hip Strength Hip Manual Muscle Testing Right Flexion (L2) 4 Good Extension (S1) 4- Good- Abduction 3+ Fair+ External Rotation 3+ Fair+ Internal Rotation 4 Good Left Flexion (L2) 4 Good Extension (S1) 4- Good- Abduction 4- Good- Adduction 4+ Good+ External Rotation 3+ Fair+ Internal Rotation 4+ Good+ Knee Strength Knee Manual Muscle Testing sandra Flexion (S2) 5 Normal Extension (L3) 5 Normal PT-OP-Q Treatments Start: 08/07/24 16:23 Freq: Status: Active Protocol: Document 09/18/24 10:47 AB (Rec: 09/18/24 12:31 AB Laptop) Therapeutic Exercises Supine Exercises Modified Hammad stretch Supine Exercise Name HEP Reps/Minutes one min each side Comments verbal cues for AROM knee flexion Hip IR & ER stretch Supine Exercise Name piriformis stretch Reps/Minutes 60 sec X 2 each LE Comments hooklying Standing Exercises Glute med isometric Reps/Minutes X 1 min each side Comments verbal and visual cues single leg lift Reps/Minutes X 2 without weight then X 10 with 10 lb weight Comments cues for neutral core and LE alignment Other Exercises Single leg squat with band Other Exercise Name with UE support facing mirror HEP Resistance level one band Reps/Minutes X 12 each LE Comments verbal and visual cues Madhav Big 3 Other Exercise Name chin tuck with head lift, bird dog, side plank HEP Reps/Minutes 7 sec X 5 each Comments verbal cues PT-OP-T Assessment and Plan Start: 08/07/24 16:23 Freq: Status: Active Protocol: Document 09/18/24 10:47 AB (Rec: 09/18/24 12:31 AB Laptop) Physical Therapy Assessment Goals Three Impairment gait dysfunction Short Term Goal (STG) Patient to be instructed in normal gait mechanics including muscle activation sequencing for gait correction 09/10/24: goal met STG Duration 09/07/24 Marine Engineering Consultant Goal (LTG) Patient will be able to ambulate without compensatory movements of lateral sway or excess eversion, ER, and lateral foot movement LTG Duration 10/08/24 Two Impairment Impaired posture, flexibility and strength in hips right greater than left Short Term Goal (STG) Patient to be instructed in individualized, progressive HEP for purposes of postural correction, flexibility and strengthening with emphasis on core stabilization and correct postural alignment 09/10/24:goal met, ongoing progresion STG Duration mostly met Retirement Goal (LTG) Patient to be inidependent and compliant to HEP and demonstrate improvement in flexibility to WNL and strength to 5/5 throughout hips LTG Duration 10/08/24 One Impairment right low back, buttock, and hip pain with occasional giving way right hip Retirement Goal (LTG) Decrease pain to no greater than 2/10 with all usual activity and patient to report no giving way of hip during hiking or exercise activity. LTG Duration 10/08/24 Assessment Summary Assessment Patient able to control dynamic valgus facing mirror with band and UE use for support to Grossly 20 to 30 deg knee flexion, continues to have excessive valgus for greater depths. Physical Therapy Plan Frequency and Duration Frequency of Treatment 2x/Week Duration of treatment (weeks) 8 Plan of Care Start Date 08/08/24 Plan of Care End Date 10/08/24 Therapeutic Interventions Therapeutic Interventions Gait Training,Home Exercise Program,Manual Therapy, Neuromuscular Re-education, Patient/Caregiver Education, Self-Care/Home Management,Soft Tissue Mobilization,Taping, Therapeutic Activities, Therapeutic Exercises Modalities Cold Pack/Ice Massage,Electric Stimulation,Hot Packs, Infrared Therapy,Ultrasound Next Visit Focus/Plan Next Note Type Progress Note Next Visit Plan single leg shuttle leg press. Emphasis on slow controlled movements and body alignment. Possibly progress note/ Patient needs approval for next 6 visits per patient.
--- NOTE | 2024-09-26 09:09 | PT.OTN ---
Current Diagnoses Other chronic pain (09/26/24) Pain in left knee (09/26/24) Dorsalgia, unspecified (09/26/24) Physical Therapy Treatment Note PT-OP-A Visit Information Start: 08/07/24 16:23 Freq: Status: Active Protocol: Document 09/18/24 10:47 AB (Rec: 09/18/24 12:31 AB Laptop) Out-Patient Physical Therapy Visit Information Visit Information Visit Type Treatment Note Visit Start Time 10:48 Visit Stop Time 11:30 Visit Number 5 Number of MANAGER MATERIALS MANAGEMENT Visits 1 PT-OP-B Current Condition Start: 08/07/24 16:23 Freq: Status: Active Protocol: Document 09/10/24 09:40 SAK (Rec: 09/10/24 10:42 SAK Laptop) Current Condition History of Current Condition Onset Date 10+ yrs Current Complaints LBP, right hip pain, tightness History of Current chronic LBP, history having PT due to right sciatica Condition with noted compensatory movements s/p left knee surgery , has been walking fast on treadmill per prior PT recommendation and [place] daily. Pain has shifted from sciatica to lateral right hip pain and states right hip gives way some if lands wrong weighting hip at slightly wrong position. Also does squats, lunges, dips, push ups, rows with TRX. Doing rowing machine caused pain between shoulder blades so discontinued. 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 Described some prior PT exercises, ([employer] [facility] ex) but not currently doing. No prone exercises. Prior Treatments and PT, no imaging Tests Treatment Goals Patient/Caregiver minimize pain and be able to do usual activities Goals without pain PT-OP-C Subjective Start: 08/07/24 16:23 Freq: Status: Active Protocol: Document 09/18/24 10:47 AB (Rec: 09/18/24 12:31 AB Laptop) OP-PT Subjective Patient Comments Patient Comments Brock reports pain is going from sharp pain to dull ache . Pt reports buckling is less, denies falls. Patient rates pain 1/10 sciatic. PT-OP-G Mobility & Gait Start: 08/07/24 16:23 Freq: Status: Active Protocol: Document 08/08/24 09:03 SAK (Rec: 08/08/24 11:29 SAK Laptop) OP Mobility Evaluation Functional Movements Squats cannot squat fully to the ground OP Gait Assessment Gait Gait Assistance Independent Required: Assistive Devices Assistive Device None Comments Gait Comments increased ER left with decreased hip flexion, dec trunk rotation, increased lateral sway sandra Stair Climbing Evaluation Evaluation Level of Assist On Independent Stairs Technique/Endurance Stair Climbing Ascend and Descend Direction Stair Climbing Step Over Step Technique Comments Stair Climbing decreased gluteal activation Comments PT-OP-H Neuro Start: 08/07/24 16:23 Freq: Status: Active Protocol: Document 08/08/24 09:03 [facility] (Rec: 08/08/24 11:29 [facility] Laptop) Sensation Evaluation Gross Sensation Gross Sensation WNL PT-OP-J Posture/Palpation/Skin Start: 08/07/24 16:23 Freq: Status: Active Protocol: Document 08/08/24 09:03 [facility] (Rec: 08/08/24 09:51 [facility] Laptop) Posture Evaluation Position Standing Head/C-Spine Posture Forward Head T-Spine Posture Increased Kyphosis L-Spine Posture Increased Lordosis Shoulder Posture (L) Rounded,(R) Rounded Scapula Posture (L) Protracted,(R) Protracted Pelvis Posture Anteriorly Tilted Hip Posture (L) Externally Rotated,(R) Externally Rotated Ankle/Foot Posture (L) Forefoot Eversion Foot Arch (L) Low Arch,(R) Low Arch Comments Posture Comments Left ASIS sup to right, leg length equal supine. Palpation Assessment Location piriformis Palpation Location left Palpation Findings Soft Tissue Tightness lumbar paraspinals Palpation Findings Soft Tissue Tightness PT-OP-K Range of Motion Start: 08/07/24 16:23 Freq: Status: Active Protocol: Document 08/08/24 09:03 [facility] (Rec: 08/08/24 11:29 [facility] Laptop) Lumbar Spine Range of Motion Lumbar Spine Active Flexion 70 Extension 25 Rotation Left 10 Rotation Right 10 Lateral Flexion Left 35 Lateral Flexion 35 Right ROM Limitations Soft Tissue Tightness Wrist Goniometric Range of Motion ROM Limitations Wrist Limitations of Soft Tissue Tightness Range of Motion Hip Goniometric Range of Motion Hip Left Flexion w/Knee 110 Flexed Straight Leg Raise 85 Extension 5 Abduction 30 Internal Rotation 25 External Rotation 50 right Flexion w/Knee 110 Flexed Straight Leg Raise 80 Extension 5 Abduction 30 Internal Rotation 25 External Rotation 50 Hip ROM Limitations Hip ROM Limitations Soft Tissue Tightness Comments mild pain right ER Knee Goniometric Range of Motion Knee sandra Knee ROM WFL Yes PT-OP-L Special Tests Start: 08/07/24 16:23 Freq: Status: Active Protocol: Document 08/08/24 09:03 [facility] (Rec: 08/08/24 11:29 SAK Laptop) Special Tests Lumbar Spine Special Tests Prone Press Up Test Results - Straight Leg Raise Test Results - Hip Special Tests Scour Test Test Results +R Hip IR:ER Ratios Test Results +R PT-OP-M Strength Start: 08/07/24 16:23 Freq: Status: Active Protocol: Document 08/08/24 09:03 [facility] (Rec: 08/08/24 17:10 SAK Laptop) Trunk Strength Trunk Manual Muscle Testing Flexion 4+ Good+ Extension 4- Good- Shoulder Strength Shoulder Manual Muscle Testing sandra Flexion 4+ Good+ Extension 4 Good Abduction (C5) 4+ Good+ External Rotation 4- Good- Internal Rotation 4+ Good+ Horizontal Abduction 3+ Fair+ Hip Strength Hip Manual Muscle Testing Right Flexion (L2) 4 Good Extension (S1) 4- Good- Abduction 3+ Fair+ External Rotation 3+ Fair+ Internal Rotation 4 Good Left Flexion (L2) 4 Good Extension (S1) 4- Good- Abduction 4- Good- Adduction 4+ Good+ External Rotation 3+ Fair+ Internal Rotation 4+ Good+ Knee Strength Knee Manual Muscle Testing sandra Flexion (S2) 5 Normal Extension (L3) 5 Normal PT-OP-Q Treatments Start: 08/07/24 16:23 Freq: Status: Active Protocol: Document 09/18/24 10:47 AB (Rec: 09/18/24 12:31 AB Laptop) Therapeutic Exercises Supine Exercises Modified Hammad stretch Supine Exercise Name HEP Reps/Minutes one min each side Comments verbal cues for AROM knee flexion Hip IR & ER stretch Supine Exercise Name piriformis stretch Reps/Minutes 60 sec X 2 each LE Comments hooklying Standing Exercises Glute med isometric Reps/Minutes X 1 min each side Comments verbal and visual cues single leg lift Reps/Minutes X 2 without weight then X 10 with 10 lb weight Comments cues for neutral core and LE alignment Other Exercises Single leg squat with band Other Exercise Name with UE support facing mirror HEP Resistance level one band Reps/Minutes X 12 each LE Comments verbal and visual cues Madhav Big 3 Other Exercise Name chin tuck with head lift, bird dog, side plank HEP Reps/Minutes 7 sec X 5 each Comments verbal cues PT-OP-T Assessment and Plan Start: 08/07/24 16:23 Freq: Status: Active Protocol: Document 09/18/24 10:47 AB (Rec: 09/18/24 12:31 AB Laptop) Physical Therapy Assessment Goals Three Impairment gait dysfunction Short Term Goal (STG Patient to be instructed in normal gait mechanics ) including muscle activation sequencing for gait correction 09/10/24: goal met STG Duration 09/07/24 Circular Ripsaw Operator Goal (LTG) Patient will be able to ambulate without compensatory movements of lateral sway or excess eversion, ER, and lateral foot movement LTG Duration 10/08/24 Two Impairment Impaired posture, flexibility and strength in hips right greater than left Short Term Goal (STG Patient to be instructed in individualized, progressive ) HEP for purposes of postural correction, flexibility and strengthening with emphasis on core stabilization and correct postural alignment 09/10/24:goal met, ongoing progresion STG Duration mostly met Circular Ripsaw Operator Goal (LTG) Patient to be inidependent and compliant to HEP and demonstrate improvement in flexibility to WNL and strength to 5/5 throughout hips LTG Duration 10/08/24 One Impairment right low back, buttock, and hip pain with occasional giving way right hip Circular Ripsaw Operator Goal (LTG) Decrease pain to no greater than 2/10 with all usual activity and patient to report no giving way of hip during hiking or exercise activity. LTG Duration 10/08/24 Assessment Summary Assessment Patient able to control dynamic valgus facing mirror with band and UE use for support to Grossly 20 to 30 deg knee flexion, continues to have excessive valgus for greater depths. Physical Therapy Plan Frequency and Duration Frequency of 2x/Week Treatment Duration of 8 treatment (weeks) Plan of Care Start 08/08/24 Date Plan of Care End 10/08/24 Date Therapeutic Interventions Therapeutic Gait Training,Home Exercise Program,Manual Therapy, Interventions Neuromuscular Re-education,Patient/Caregiver Education, Self-Care/Home Management,Soft Tissue Mobilization, Taping,Therapeutic Activities,Therapeutic Exercises Modalities Cold Pack/Ice Massage,Electric Stimulation,Hot Packs, Infrared Therapy,Ultrasound Next Visit Focus/Plan Next Note Type Progress Note Next Visit Plan single leg shuttle leg press. Emphasis on slow controlled movements and body alignment. Possibly progress note/ Patient needs approval for next 6 visits per patient.
--- NOTE | 2024-09-26 09:45 | PT.OPPN ---
Current Diagnoses Other chronic pain (09/26/24) Pain in left knee (09/26/24) Dorsalgia, unspecified (09/26/24) Physical Therapy Progress Note PT-OP-A Visit Information Start: 08/07/24 16:23 Freq: Status: Active Protocol: Document 09/26/24 09:16 BL (Rec: 09/26/24 09:44 BL Laptop) Out-Patient Physical Therapy Visit Information Visit Information Visit Type Progress Note Visit Start Time 08:20 Visit Stop Time 09:00 Visit Number 6 Number of DIGITAL STRATEGIST SENIOR MANAGER Visits 0 PT-OP-B Current Condition Start: 08/07/24 16:23 Freq: Status: Active Protocol: Document 09/10/24 09:40 SAK (Rec: 09/10/24 10:42 SAK Laptop) Current Condition History of Current Condition Onset Date 10+ yrs Current Complaints LBP, right hip pain, tightness History of Current chronic LBP, history having PT due to right sciatica Condition with noted compensatory movements s/p left knee surgery , has been walking fast on treadmill per prior PT recommendation and [place] daily. Pain has shifted from sciatica to lateral right hip pain and states right hip gives way some if lands wrong weighting hip at slightly wrong position. Also does squats, lunges, dips, push ups, rows with TRX. Doing rowing machine caused pain between shoulder blades so discontinued. 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 Described some prior PT exercises, ([employer] [facility] ex) but not currently doing. No prone exercises. Prior Treatments and PT, no imaging Tests Treatment Goals Patient/Caregiver minimize pain and be able to do usual activities Goals without pain PT-OP-C Subjective Start: 08/07/24 16:23 Freq: Status: Active Protocol: Document 09/26/24 09:16 BL (Rec: 09/26/24 09:44 BL Laptop) OP-PT Subjective Patient Comments Patient Comments Pt presents to the clinic this date and reports he is doing well overall, continues to have mild symptoms with activity but pleased with progress. Pt states he wants to get back to running but still demos poor running form. OP-PT Pain Assessment Comments Pain Comments Pt reports continues to have 2/10 pain with ADLs in hip however can progress with running and uneven terrain hiking activities. PT-OP-G Mobility & Gait Start: 08/07/24 16:23 Freq: Status: Active Protocol: Document 09/26/24 09:16 BL (Rec: 09/26/24 09:44 BL Laptop) OP Gait Assessment Comments Gait Comments Pt demos improved R foot pronation with gait however continues to demo toe out when not focused on form. PT-OP-H Neuro Start: 08/07/24 16:23 Freq: Status: Active Protocol: Document 08/08/24 09:03 SAK (Rec: 08/08/24 11:29 SAK Laptop) Sensation Evaluation Gross Sensation Gross Sensation WNL PT-OP-J Posture/Palpation/Skin Start: 08/07/24 16:23 Freq: Status: Active Protocol: Document 08/08/24 09:03 SAK (Rec: 08/08/24 09:51 SAK Laptop) Posture Evaluation Position Standing Head/C-Spine Posture Forward Head T-Spine Posture Increased Kyphosis L-Spine Posture Increased Lordosis Shoulder Posture (L) Rounded,(R) Rounded Scapula Posture (L) Protracted,(R) Protracted Pelvis Posture Anteriorly Tilted Hip Posture (L) Externally Rotated,(R) Externally Rotated Ankle/Foot Posture (L) Forefoot Eversion Foot Arch (L) Low Arch,(R) Low Arch Comments Posture Comments Left ASIS sup to right, leg length equal supine. Palpation Assessment Location piriformis Palpation Location left Palpation Findings Soft Tissue Tightness lumbar paraspinals Palpation Findings Soft Tissue Tightness PT-OP-K Range of Motion Start: 08/07/24 16:23 Freq: Status: Active Protocol: Document 09/26/24 09:16 BL (Rec: 09/26/24 09:44 BL Laptop) Lumbar Spine Range of Motion Lumbar Spine Active Flexion 70 Extension 25 Rotation Left 10 Rotation Right 10 Lateral Flexion Left 35 Lateral Flexion 35 Right Hip Goniometric Range of Motion Hip Measured in Degrees Left Flexion w/Knee 110 Flexed Straight Leg Raise 85 Extension 10 Abduction 30 Internal Rotation 25 External Rotation 50 right Flexion w/Knee 110 Flexed Straight Leg Raise 80 Extension 10 Abduction 30 Internal Rotation 25 External Rotation 50 PT-OP-L Special Tests Start: 08/07/24 16:23 Freq: Status: Active Protocol: Document 08/08/24 09:03 SAK (Rec: 08/08/24 11:29 SAK Laptop) Special Tests Lumbar Spine Special Tests Prone Press Up Test Results - Straight Leg Raise Test Results - Hip Special Tests Scour Test Test Results +R Hip IR:ER Ratios Test Results +R PT-OP-M Strength Start: 08/07/24 16:23 Freq: Status: Active Protocol: Document 09/26/24 09:16 BL (Rec: 09/26/24 09:44 BL Laptop) Hip Strength Hip Manual Muscle Testing Right Flexion (L2) 4+ Good+ Extension (S1) 4 Good Abduction 4+ Good+ Adduction 4+ Good+ External Rotation 4- Good- Internal Rotation 4 Good Left Flexion (L2) 4+ Good+ Extension (S1) 4 Good Abduction 4- Good- Adduction 4+ Good+ External Rotation 4- Good- Internal Rotation 4+ Good+ PT-OP-T Assessment and Plan Start: 08/07/24 16:23 Freq: Status: Active Protocol: Document 09/26/24 09:16 BL (Rec: 09/26/24 09:44 BL Laptop) Physical Therapy Assessment Impairments Impairments Activity Tolerance,Gait,Pain Goals Three Impairment gait dysfunction Short Term Goal (STG Patient to be instructed in normal gait mechanics ) including muscle activation sequencing for gait correction 09/10/24: goal met STG Duration 09/07/24 Business Continuity Manager Goal (LTG) Patient will be able to ambulate without compensatory movements of lateral sway or excess eversion, ER, and lateral foot movement 09/26/24: goal met LTG Duration 10/08/24 Two Impairment Impaired posture, flexibility and strength in hips right greater than left Short Term Goal (STG Patient to be instructed in individualized, progressive ) HEP for purposes of postural correction, flexibility and strengthening with emphasis on core stabilization and correct postural alignment 09/10/24:goal met, ongoing progression STG Duration net Business Continuity Manager Goal (LTG) Patient to be inidependent and compliant to HEP and demonstrate improvement in flexibility to WNL and strength to 5/5 throughout hips 09/26/2024: goal not met 4+ LTG Duration 10/08/24 One Impairment right low back, buttock, and hip pain with occasional giving way right hip [facility] Goal (LTG) Decrease pain to no greater than 2/10 with all usual activity and patient to report no giving way of hip during hiking or exercise activity. 09/26/2024: goal not met, pain 2-4/10 with activity LTG Duration 09/26/24 Progress Towards Goals Progress Comments Pt met 2/3 LTG, continues to progress toward LTG throughout session. Assessment Summary Assessment Pt has progressed well in therapy with hip strengthening activities as well as functional movement training, pt will continue to benefit from strength and endurance training to hip rotation and stabilizing musculature however pt will be traveling this summer and requests to DC. Pt reviewed in HEP for continued progression outside of formal therapy. Pt has progressed well toward therapy goals meeting 2/3 LTG. Plan to DC a this time . Physical Therapy Plan Discharge Physical Therapy Discharge Reasons Patient Request Discharge Comments Pt will be traveling away from the area for the summer and requests to discharge and plans to contact our office once he returns if his symptoms continue.
--- NOTE | 2024-09-26 11:04 | PT.OTN ---
Current Diagnoses Other chronic pain (09/26/24) Pain in left knee (09/26/24) Dorsalgia, unspecified (09/26/24) Physical Therapy Treatment Note PT-OP-A Visit Information Start: 08/07/24 16:23 Freq: Status: Active Protocol: Document 09/26/24 09:16 BL (Rec: 09/26/24 09:44 BL Laptop) Out-Patient Physical Therapy Visit Information Visit Information Visit Type Progress Note Visit Start Time 08:20 Visit Stop Time 09:00 Visit Number 6 Number of PET HOUSE SITTER Visits 0 PT-OP-B Current Condition Start: 08/07/24 16:23 Freq: Status: Active Protocol: Document 09/10/24 09:40 SAK (Rec: 09/10/24 10:42 SAK Laptop) Current Condition History of Current Condition Onset Date 10+ yrs Current Complaints LBP, right hip pain, tightness History of Current chronic LBP, history having PT due to right sciatica Condition with noted compensatory movements s/p left knee surgery , has been walking fast on treadmill per prior PT recommendation and [place] daily. Pain has shifted from sciatica to lateral right hip pain and states right hip gives way some if lands wrong weighting hip at slightly wrong position. Also does squats, lunges, dips, push ups, rows with TRX. Doing rowing machine caused pain between shoulder blades so discontinued. 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 Described some prior PT exercises, ([employer] [facility] ex) but not currently doing. No prone exercises. Prior Treatments and PT, no imaging Tests Treatment Goals Patient/Caregiver minimize pain and be able to do usual activities Goals without pain PT-OP-C Subjective Start: 08/07/24 16:23 Freq: Status: Active Protocol: Document 09/26/24 09:16 BL (Rec: 09/26/24 09:44 BL Laptop) OP-PT Subjective Patient Comments Patient Comments Pt presents to the clinic this date and reports he is doing well overall, continues to have mild symptoms with activity but pleased with progress. Pt states he wants to get back to running but still demos poor running form. OP-PT Pain Assessment Comments Pain Comments Pt reports continues to have 2/10 pain with ADLs in hip however can progress with running and uneven terrain hiking activities. PT-OP-G Mobility & Gait Start: 08/07/24 16:23 Freq: Status: Active Protocol: Document 09/26/24 09:16 BL (Rec: 09/26/24 09:44 BL Laptop) OP Gait Assessment Comments Gait Comments Pt demos improved R foot pronation with gait however continues to demo toe out when not focused on form. PT-OP-H Neuro Start: 08/07/24 16:23 Freq: Status: Active Protocol: Document 08/08/24 09:03 SAK (Rec: 08/08/24 11:29 SAK Laptop) Sensation Evaluation Gross Sensation Gross Sensation WNL PT-OP-J Posture/Palpation/Skin Start: 08/07/24 16:23 Freq: Status: Active Protocol: Document 08/08/24 09:03 SAK (Rec: 08/08/24 09:51 SAK Laptop) Posture Evaluation Position Standing Head/C-Spine Posture Forward Head T-Spine Posture Increased Kyphosis L-Spine Posture Increased Lordosis Shoulder Posture (L) Rounded,(R) Rounded Scapula Posture (L) Protracted,(R) Protracted Pelvis Posture Anteriorly Tilted Hip Posture (L) Externally Rotated,(R) Externally Rotated Ankle/Foot Posture (L) Forefoot Eversion Foot Arch (L) Low Arch,(R) Low Arch Comments Posture Comments Left ASIS sup to right, leg length equal supine. Palpation Assessment Location piriformis Palpation Location left Palpation Findings Soft Tissue Tightness lumbar paraspinals Palpation Findings Soft Tissue Tightness PT-OP-K Range of Motion Start: 08/07/24 16:23 Freq: Status: Active Protocol: Document 09/26/24 09:16 BL (Rec: 09/26/24 09:44 BL Laptop) Lumbar Spine Range of Motion Lumbar Spine Active Flexion 70 Extension 25 Rotation Left 10 Rotation Right 10 Lateral Flexion Left 35 Lateral Flexion 35 Right Hip Goniometric Range of Motion Hip Left Flexion w/Knee 110 Flexed Straight Leg Raise 85 Extension 10 Abduction 30 Internal Rotation 25 External Rotation 50 right Flexion w/Knee 110 Flexed Straight Leg Raise 80 Extension 10 Abduction 30 Internal Rotation 25 External Rotation 50 PT-OP-L Special Tests Start: 08/07/24 16:23 Freq: Status: Active Protocol: Document 08/08/24 09:03 SAK (Rec: 08/08/24 11:29 SAK Laptop) Special Tests Lumbar Spine Special Tests Prone Press Up Test Results - Straight Leg Raise Test Results - Hip Special Tests Scour Test Test Results +R Hip IR:ER Ratios Test Results +R PT-OP-M Strength Start: 08/07/24 16:23 Freq: Status: Active Protocol: Document 09/26/24 09:16 BL (Rec: 09/26/24 09:44 BL Laptop) Hip Strength Hip Manual Muscle Testing Right Flexion (L2) 4+ Good+ Extension (S1) 4 Good Abduction 4+ Good+ Adduction 4+ Good+ External Rotation 4- Good- Internal Rotation 4 Good Left Flexion (L2) 4+ Good+ Extension (S1) 4 Good Abduction 4- Good- Adduction 4+ Good+ External Rotation 4- Good- Internal Rotation 4+ Good+ PT-OP-Q Treatments Start: 08/07/24 16:23 Freq: Status: Active Protocol: Document 09/26/24 09:16 BL (Rec: 09/26/24 09:44 BL Laptop) Therapeutic Exercises Supine Exercises Modified Hammad stretch Supine Exercise Name HEP Comments verbal cues for AROM knee flexion Hip IR & ER stretch Supine Exercise Name piriformis stretch Reps/Minutes 60 sec X 2 each LE Comments hooklying Standing Exercises Glute med isometric Reps/Minutes X 1 min each side Comments verbal and visual cues PT-OP-T Assessment and Plan Start: 08/07/24 16:23 Freq: Status: Active Protocol: Document 09/26/24 09:16 BL (Rec: 09/26/24 09:44 BL Laptop) Physical Therapy Assessment Impairments Impairments Activity Tolerance,Gait,Pain Goals Three Impairment gait dysfunction Short Term Goal (STG Patient to be instructed in normal gait mechanics ) including muscle activation sequencing for gait correction 09/10/24: goal met STG Duration 09/07/24 Fdc Goal (LTG) Patient will be able to ambulate without compensatory movements of lateral sway or excess eversion, ER, and lateral foot movement 09/26/24: goal met LTG Duration 10/08/24 Two Impairment Impaired posture, flexibility and strength in hips right greater than left Short Term Goal (STG Patient to be instructed in individualized, progressive ) HEP for purposes of postural correction, flexibility and strengthening with emphasis on core stabilization and correct postural alignment 09/10/24:goal met, ongoing progression STG Duration net Fdc Goal (LTG) Patient to be inidependent and compliant to HEP and demonstrate improvement in flexibility to WNL and strength to 5/5 throughout hips 09/26/2024: goal not met 4+ LTG Duration 10/08/24 One Impairment right low back, buttock, and hip pain with occasional giving way right hip Fdc Goal (LTG) Decrease pain to no greater than 2/10 with all usual activity and patient to report no giving way of hip during hiking or exercise activity. 09/26/2024: goal not met, pain 2-4/10 with activity LTG Duration 09/26/24 Progress Towards Goals Progress Comments Pt met 2/3 LTG, continues to progress toward LTG throughout session. Assessment Summary Assessment Pt has progressed well in therapy with hip strengthening activities as well as functional movement training, pt will continue to benefit from strength and endurance training to hip rotation and stabilizing musculature however pt will be traveling this summer and requests to DC. Pt reviewed in HEP for continued progression outside of formal therapy. Pt has progressed well toward therapy goals meeting 2/3 LTG. Plan to DC a this time . Physical Therapy Plan Discharge Physical Therapy Discharge Reasons Patient Request Discharge Comments Pt will be traveling away from the area for the summer and requests to discharge and plans to contact our office once he returns if his symptoms continue.
== END 2024-10-08 10:26 | disposition home or self-care (01) ==
LOC: PHYS 08:15
PROVIDERS: Family Provider Family Medicine; PCP Family Medicine; Referring Provider Family Medicine; Visit Provider Family Medicine
DX: G89.29 Other chronic pain (principal); M25.562 Pain in left knee; M54.9 Dorsalgia, unspecified
CPT/HCPCS: 97110; 97112; 97116; 97161; 97535